=== PATIENT | female | born 1965 | race Caucasian/White ===

== ENCOUNTER 2024-08-11 15:19 | Emergency (ER) | payer BC, SELFPAY ==
[2024-08-11 15:21] VITALS: BP 150/89
[2024-08-11 15:46] VITALS: BMI 32.6
--- NOTE | 2024-08-11 16:56 | ED.GENMED ---
History of Present Illness
General
Chief Complaint: Fall
Source: patient
Time Seen by Provider: 08/11/24 16:46
History of Present Illness
History of Present Illness:
Very pleasant 58-year-old female presents emergency department after suffering a trip and fall earlier today. She hit the left side of her forehead suffering a hematoma. She denies loss of consciousness, anticoagulation, preceding symptoms, severe
headache, neck pain, numbness, tingling, visual changes, focal weakness, chest pain, shortness of breath, abdominal pain, nausea, vomiting, or other complaints.
Past History
Past History
ED Past Surgical History: Other (GASTRIC BYPASS)
Social History
Tobacco: Non-smoker
Alcohol: None
Drug: None
Phy Exam
Physical Exam
Physical Exam:
GENERAL: Alert , in no apparent distress
EYE: pupils equal and reactive , eomi, NO Nystagmus, no photophobia
NECK: Supple, no significant adenopathy no midline ttp.
ENT: o/p clr, mmm, no toth, no raccoon, no signs head/fac inj except mod hematoma R forehead area just super to L eyebrow, nob reak in skin, no crepitus, no infraorbital anesthesia, no step off.
CARDIAC: Regular rate and rhythm .
LUNGS: Clear breath sounds bilaterally, no acute respiratory distress, no wheezes/rales/rhonchi
ABDOMEN: Soft, without focal tenderness, no r/g, no cvat
NEUROLOGICAL: Alert and oriented, no focal neuro deficits f to n nl motor 5/5, sens itnact, cn 2-12 intact
SKIN: Warm and dry, skin intact.
MUSCULOSKELETAL: No edema, well perfused.
PSYCH: Normal and appropriate interaction.
Course
Vital Signs
Initial and Last Documented VS:
Initial Vital Signs
Temp Pulse Resp BP Pulse Ox
98.2 F 90 16 150/89 98
08/11/24 15:21 08/11/24 15:21 08/11/24 15:21 08/11/24 15:21 08/11/24 15:21
Last Documented Vital Signs
Temp Pulse Resp BP Pulse Ox
98.2 F 90 16 150/89 98
08/11/24 15:21 08/11/24 15:21 08/11/24 15:21 08/11/24 15:21 08/11/24 15:21
Update Note
Update Note:
Patient presents to the Emergency Department with ____fall
Number and Complexity of Problems Addressed at the Encounter
� Chronic conditions affecting care:
� Acute Exacerbation and/or Progression of Chronic Illness:
� Differential Diagnosis includes:hematoma, intracranial bleed, neck fx, facial fx et cetc
Amount and/or Complexity of Data to be Reviewed and Analyzed
� I performed an independent evaluation of and my interpretation is:
EKG:
CT:
Xrays:
Laboratory Studies:
Other:
� Review of other/old records reveals:
� Clinical information was obtained by an independent historian:
� Prescriptions/Medications Considered but not given:
� Further testing considered but not performed:
Risk of Complications and/or Morbidity or Mortality of Patient Management
� Social determinants of health affecting care:
� Discussion with other providers (PCP, Hospitalists, Consultants, etc):
� Escalation of care including admission/observation vs risk of discharge considered:exam not c/w fracture, bleed, etc. Hematoma noted. Neuro intact. D/w pt imp;ort of f/u and rasons to rted.
ED Attending Note
-
Portions of this chart may have been created with voice recognition software.� Occasional wrong word or��sound alike� substitutions may have occurred due to the inherent limitations of voice recognition software.
Discharge Plan
Departure
Patient Disposition: Home (Routine Discharge)
Date of Disposition: 08/11/24
Time of Disposition: 16:56
Patient with high blood pressure during this ER visit?: Yes
Condition: Good
Discharge Problem:
Contusion, Head injury
Instructions: Head Injury in Adults (DC), Contusion (DC), BLOOD PRESSURE
Referrals:
NONE,* [Family Provider] -
Activity Restrictions/Additional Instructions:
IF YOU DEVELOP DIZZINESS, VISUAL CHANGES, CHEST PAIN, TROUBLE BREATHING, NECK PAIN, SEVERE HEADACHE, VOMITING OR OTHER WORRISOME SIGNS, GO TO THE ER IMMEDIATELY!
Interventions
Interventions:
*Risk Screen - Suicide Last Done: 08/11/24 15:21
*General Assessment Last Done: 08/11/24 15:46
*Neglect/Abuse Screening Last Done: 08/11/24 15:21
*ED COVID-19 Vaccine History Last Done: 08/11/24 15:46
ED-Musculoskeletal Assessment Last Done: 08/11/24 15:46
ED- Neurological Assessment Last Done: 08/11/24 15:46
ED-Skin Assessment Last Done: 08/11/24 15:46
Discharge Date and Time
Print Language: SPANISH
== END 2024-08-11 17:28 | disposition home or self-care (01) ==
LOC: EMR 15:19
PROVIDERS: EMERGENCY PHYSICIAN Emergency Medicine
DX: S09.90XA Unspecified injury of head, initial encounter (principal); S00.83XA Contusion of other part of head, initial encounter; W01.0XXA Fall on same level from slipping, tripping and stumbling without subsequent striking against object, initial encounter; R03.0 Elevated blood-pressure reading, without diagnosis of hypertension
CPT/HCPCS: 99283